=== PATIENT | male | born 1960 | race Caucasian/White ===

== ENCOUNTER → 2017-08-09 | Emergency (ER) | payer OTHER ==
[~2017-08-09] VITALS: Ht 170.2 cm; Wt 82.6 kg
== END | disposition home or self-care (01) ==
LOC: ER 15:15
DX: R30.0 Dysuria (principal)

== ENCOUNTER 2017-10-02 09:18 | Inpatient (IN) | payer OTHER ==
[~2017-10-02] VITALS: Ht 170.2 cm; Wt 81.6 kg
[2017-10-02] MEDS ORDERED: LOTREL 10-20 M1 EACH (09:23)
[2017-10-02] MEDS ORDERED: FOSAMAX70 MG (09:24)
== END 2017-10-03 09:26 | disposition home or self-care (01) | DRG 390 ==
LOC: ER 09:18 → SURH 09:34
DX: K56.690 Other partial intestinal obstruction (principal); Z93.3 Colostomy status

== ENCOUNTER 2019-08-22 04:53 | Day surgery (SDC) | payer OTHER ==
[~2019-08-22 04:53] MED LIST: FOSAMAX70 MG; GABAPENTIN100 M2 PO; LOTREL 10-20 M1 EACH
== END 2019-08-22 12:06 | disposition home or self-care (01) ==
LOC: CIR.AMB 04:53 → ADM 10:30 → CIR.AMB 10:30
DX: C20 Malignant neoplasm of rectum (principal)
CPT/HCPCS: 36561; C1751